=== PATIENT | female | born 1975 | race Caucasian/White ===

== ENCOUNTER 2019-07-06 00:32 | Emergency (ER) | payer MEDICAID ==
[~2019-07-06] VITALS: Ht 162.6 cm; Wt 124.8 kg
[~2019-07-06 00:32] MED LIST: FERR325T17 PO
[2019-07-06] MEDS ORDERED: HYDROCORTISONE (00:43)
[2019-07-06] MEDS ORDERED: LORATADINE (00:43)
[2019-07-06] MEDS ORDERED: FAMOTIDINE (00:43)
[2019-07-06] MEDS ORDERED: BALSALAZIDE (00:43)
[2019-07-06 01:12] LABS: MICROSCOPIC AUTO
[2019-07-06 01:15] LABS: CULTURE INDICATED? NO
--- NOTE | 2019-07-06 01:22 | NUR ---
pt called to room from lobby
[2019-07-06 02:23] LABS: BASOPHILS # (AUTO) 0.05 x10^3/uL (0-0.1); BASOPHILS % (AUTO) 1 % (0-1); EOSINOPHILS % (AUTO) 2 % (1-7); LYMPHOCYTES # (AUTO) 2.99 x10^3/uL (1-3.4); LYMPHOCYTES % (AUTO) 30 % (22-44); MD NO; MEAN CORPUSCULAR HEMOGLOBIN 30.3 pg (27.0-34.8); MEAN CORPUSCULAR HGB CONC 34.2 g/dL (32.4-35.8); MEAN CORPUSCULAR VOLUME 88.7 fL (80-100); MONOCYTES # (AUTO) 0.55 x10^3/uL (0.2-0.8); MONOCYTES % (AUTO) 5 % (2-9); NEUTROPHILS # (AUTO) 6.25 x10^3/uL (1.8-6.8); NEUTROPHILS % (AUTO) 62 % (42-75); PLATELET COUNT 338 x10^3/uL (130-400); RED BLOOD COUNT 5.07 x10^6/uL (3.82-5.3); RED CELL DISTRIBUTION WIDTH 13.5 % (9.6-15.2)
[2019-07-06 02:29] LABS: ANION GAP 10 mmol/L (5-15); CALCIUM 9.2 mg/dL (8.5-10.1); CHLORIDE 104 mmol/L (98-107); CREATININE 0.67 mg/dL (0.55-1.02)
[2019-07-06 03:57] VITALS: BP 132/77
== END 2019-07-06 03:59 | disposition home or self-care (01) ==
LOC: ED 02:51
DX: N30.01 Acute cystitis with hematuria (principal)
CPT/HCPCS: 36415; 80048; 81001; 84703; 85025; 87086; 99283

== ENCOUNTER 2019-09-13 22:58 | Emergency (ER) | payer MEDICAID ==
[~2019-09-13] VITALS: Ht 162.6 cm; Wt 124.1 kg
[~2019-09-13 22:58] MED LIST changes: +BALSALAZIDE; +FAMOTIDINE; +HYDROCORTISONE; +LORATADINE
--- NOTE | 2019-09-13 23:45 | NUR ---
REPORT TO RODNEY CURTIS
--- NOTE | 2019-09-14 00:02 | NUR ---
PT SITTING IN BED, NO SIGNS OF DISTRESS.
[2019-09-14 00:35] VITALS: BP 149/72
== END 2019-09-14 00:39 | disposition home or self-care (01) ==
LOC: ED 23:45
DX: S09.90XA Unspecified injury of head, initial encounter (principal); Z90.89 Acquired absence of other organs; W22.8XXA Striking against or struck by other objects, initial encounter; Y93.89 Activity, other specified; Y92.009 Unspecified place in unspecified non-institutional (private) residence as the place of occurrence of the external cause; Y99.8 Other external cause status
CPT/HCPCS: 70450; 99284